=== PATIENT | male | born 1975 | race Caucasian/White ===

== ENCOUNTER 2018-04-17 16:18 | Emergency (ER) | payer MEDICAID ==
--- NOTE | 2018-04-17 17:00 | EDPHY ---
HPI/HX/ROS/PE/MDM Narrative: CHIEF COMPLAINT: Rash HISTORY OF PRESENT ILLNESS: 42 yo male presents complaining of an itchy rash for several months. Nursing staff notice a small bug, a louse, on patient skin when he was changing into a gown. Rash is along axilla bilaterally, at waist line and in groin. No fever, chills, chest pain, shortness of breath, palpitations, vomiting, diarrhea, urinary complaints, headache, lightheadedness. REVIEW OF SYSTEMS: Aside from elements discussed in the HPI, a comprehensive 10-point review of systems was reviewed and is negative. 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 Smoker. Prior medical records reviewed including ED visit 10/19/15. VITAL SIGNS: Reviewed by me GENERAL: Well-developed, well-nourished, resting comfortably in no respiratory distress. HEENT: Benign, no conjunctival injection, no rash on face. LUNGS: Clear to auscultation bilaterally, no wheezes, rhonchi or rales. CARDIAC: Regular rate and rhythm, no rubs, murmurs or gallops. ABDOMEN: Soft, nontender, nondistended, bowel sounds normal. BACK: No CVA tenderness. EXTREMITIES: No trauma. No edema. Range of motion is normal throughout. NEURO: Alert and oriented, grossly nonfocal. SKIN: Warm and dry. Macular papular rash along axilla, in groin, along anterior chest, and in groin. PSYCHIATRIC: Normal mentation, no agitation. Portions of this note were transcribed by a medical parasitologist. I personally performed a history, physical exam, medical decision making, and confirmed accuracy of information the transcribed note. ED Course: Patient presents with rash; louse found on body. Will dc with instruction for lice treatment. MDM: Diff dx considered included lice, scabies, bedbugs, impetigo, cellulitis, allergic reaction. General Time Seen by Provider: 04/17/18 16:45 Initial Vital Signs: Initial Vital Signs Temperature (C) 36.7 C 04/17/18 16:24 Heart Rate 89 04/17/18 16:24 Respiratory Rate 16 04/17/18 16:24 Blood Pressure 122/85 H 04/17/18 16:24 O2 Sat (%) 98 04/17/18 16:24 O2 Delivery Mode Room Air Allergies/Adverse Reactions: No Known Allergies Allergy (Verified 11/09/14 02:01) Home Medications: Medication Instructions Recorded Enalapril Maleate 04/17/18 Klonopin 04/17/18 Permethrin 5% [Elimite 5%] 1 jass TP ONCE #2 cream 04/17/18 Zoloft 50mg (*) 04/17/18 Departure - Departure Disposition: Home, Routine, Self-Care Clinical Impression: Body lice Condition: Good Instructions: Permethrin (On the skin), Body Lice (ED) Additional Instructions: 1. Take a long hot shower. Then apply topical permethrin cream and leave on your skin for 8-10 hours. You do not need to repeat the dosage unless the infestation is not under control. 2. Bag all your linens and clothing and leave in bags for a minimum of 24 hours. Then wash everything in hot soapy water. 3. Follow up with your primary care provider as needed. 4. Take Benadryl as directed on the packaging as needed for itching over the next few days. This medication can make you drowsy. Referrals: Adrian Espinosa MD [[facility] [place] - As per Instructions [facility],. [Clinic] - As per Instructions Prescriptions: Permethrin 5% [Elimite 5%] 1 jass TP ONCE #2 cream Report Scribed for: Anisha Centeno Report Scribed by: Thelma Solano Date of Report: 04/17/18 Time of Report: 16:53
[2018-04-17 18:17] VITALS: BP 132/62
== END 2018-04-17 18:15 | disposition home or self-care (01) ==
DX: B85.1 Pediculosis due to Pediculus humanus corporis (principal); Z95.0 Presence of cardiac pacemaker